=== PATIENT | female | born 1995 | race African-American/Black ===

== ENCOUNTER 2017-04-11 21:02 | Emergency (ER) | payer OTHER ==
[~2017-04-11] VITALS: Ht 165.1 cm; Wt 50.9 kg
[2017-04-11 21:11] VITALS: TEMP 98.8
[2017-04-11] MEDS ORDERED: DESYREL 50MG50 MG (21:16)
[2017-04-11 21:40] LABS: BASO % 0.5 % (0.0-2.0); EOS # 0.1 (0.0-0.7); EOS % 1.5 % (0-4.0); GRAN # 1.3 (1.4-6.5); GRAN % 30.8 % (42.2-75.2); HEMATOCRIT 37.4 % (37.0-47.0); LYMPH # 2.2 (1.2-3.4); LYMPH % 53.2 % (20.0-51.0); MEAN CELL VOLUME 86 fl (80.0-100.0); MEAN CORPUSCULAR HEMOGLOBIN 28 pg (27.0-31.0); MEAN CORPUSCULAR HGB CONC 32 g/dl (33.0-37.0); MEAN PLATELET VOLUME 10.3 fl (7.4-10.4); MONO # 0.6 (0.1-0.6); MONO % 13.8 % (1.7-9.3); PLATELET COUNT 302 K/mm3 (130-400); RED BLOOD COUNT 4.33 M/mm3 (4.10-5.30); REDCELL DISTRIBUTION WIDTH-CV 13.6 % (11.5-14.5); WHITE BLOOD COUNT 4.1 K/mm3 (4.8-10.8)
[2017-04-11 21:55] LABS: ALANINE AMINOTRANSFERASE 21 U/L (9-52); ALBUMIN 4.8 gm/dL (3.5-5.0); ALKALINE PHOSPHATASE 85 U/L (50-136); ANION GAP 13 mmol/L (7-16); BILIRUBIN,TOTAL 0.8 mg/dL (0.0-1.0); BLOOD UREA NITROGEN 8 mg/dL (7-17); CALCIUM 9.6 mg/dL (8.4-10.2); CARBON DIOXIDE 27 mmol/L (22-30); CHLORIDE 101 mmol/L (98-107); CREATININE, serum 0.67 mg/dL (0.52-1.25); GLUCOSE 81 mg/dL (74-106); POTASSIUM 3.8 mmol/L (3.4-5.0); SODIUM 141 mmol/L (137-145); TOTAL PROTEIN 8.5 gm/dL (6.4-8.2)
[2017-04-11 21:56] LABS: ACETAMINOPHEN < 10 ug/mL (10-30); SALICYLATE < 1.0 mg/dL
[2017-04-11 22:01] LABS: AMPHETAMINE URINE NEGATIVE; BARBITURATES URINE NEGATIVE; BENZODIAZEPINES URINE NEGATIVE; BUPRENORPHINE URINE NEGATIVE; METHADONE URINE NEGATIVE; OPIATES URINE NEGATIVE; OXYCODONE URINE NEGATIVE; PHENCYCLIDINE URINE NEGATIVE; PROPOXYPHENE URINE NEGATIVE; THC CANNABINOIDS URINE NEGATIVE
[2017-04-12] MEDS ORDERED: LEXAPRO20 MG PO (00:11)
[2017-04-12] MEDS ORDERED: DESYREL 50MG50 MG PO (00:12)
[2017-04-12 01:39] VITALS: BP 131/81; PULSE 60
== END 2017-04-12 03:30 ==
LOC: COL.ER 21:02
PROVIDERS: Nurse Practitioner
DX: F32.9 Major depressive disorder, single episode, unspecified (principal); R45.851 Suicidal ideations; F41.9 Anxiety disorder, unspecified; F17.200 Nicotine dependence, unspecified, uncomplicated